=== PATIENT | female | born 1990 | race African-American/Black ===

== ENCOUNTER 2016-04-04 10:29 | Emergency (ER) | payer OTHER ==
[2016-04-04 12:16] LABS: Bilirubin Negative (Negative); Blood, Urine Trace (Negative); Clarity Clear (Clear); Glucose, Urine (Dipstick) Negative (Negative); Leukocyte Negative (Negative); Nitrite Negative (Negative); Protein, Urine (Dipstick) Negative (Neg-Trace); Specific Gravity, Urine 1.025 (1.005-1.030); Urobilinogen 0.2 mg/dL (0.2-1.0); pH, Urine 6.5 (5.0-9.0)
[2016-04-04 12:31] LABS: Bacteria/HPF None Seen HPF (None Seen); Renal Epithelial 0-3 HPF (0-3); Squamous Epithelial 0-3 HPF (0-3); Transitional Epithelial 0-3 HPF (0-3); WBC/HPF 0-3 HPF (0-3); Yeast-All Forms None Seen HPF (None Seen)
[2016-04-04 12:31] LABS: #Basophils 0.1 thou/uL (0.0-0.2); #Eosinphils 0.2 thou/uL (0.0-0.7); #Lymphocytes 2.4 thou/uL (1.20-3.40); #Monocytes 0.7 thou/uL (0.11-0.59); #Neutrophils 5.6 thou/uL (1.40-6.50); %Basophils 0.8 % (0.0-1.0); %Eosinophils 2.5 % (0.0-10.0); %Lymphocytes 26.6 % (21.0-51.0); %Monocytes 7.6 % (0.0-10.0); %Neutrophils 62.4 % (42.0-75.0); Mean Corpuscular HGB CONC 34.2 g/dL (32.0-36.0); Mean Corpuscular Hemoglobin 31.6 pg (27.0-31.0); Mean Corpuscular Volume 92.6 fl (81.0-99.0); Mean Platelet Volume 7.3 fL (7.4-10.4); Platelet Count 309 thou/uL (130-400); RBC Distribution Width 11.7 % (11.5-14.5)
[2016-04-04 12:39] LABS: Anion Gap 13 mmol/L (10-20); BUN (Urea Nitrogen) 6 mg/dL (7.0-18.7); Calc. Creatinine Clearance 0 mL/min (70-130); Calcium 9.2 mg/dL (7.8-10.44); Carbon Dioxide 25 mmol/L (22-29); Chloride 104 mmol/L (98-107); Estimated GFR-MDRD Greater than 90; Glucose 92 mg/dL (70-105); Sodium 138 mmol/L (136-145)
== END 2016-04-04 13:26 | disposition home or self-care (01) ==
LOC: MADERS 10:29
DX: O99.89 Other specified diseases and conditions complicating pregnancy, childbirth and the puerperium (principal); R33.9 Retention of urine, unspecified; O10.912 Unspecified pre-existing hypertension complicating pregnancy, second trimester
CPT/HCPCS: 36415; 80048; 81003; 81015; 85025; 99283

== ENCOUNTER 2016-05-29 17:00 | Outpatient (CLI) | payer OTHER ==
[2016-05-29 17:49] LABS: Amphetamine Detected (NotDetected); Barbiturates Screen Not Detected (NotDetected); Benzodiazepine Screen Not Detected (NotDetected); Cocaine Metabolite Screen Not Detected (NotDetected); Medtox Control Line Valid? VALID (VALID); Methadone Not Detected (NotDetected); Methamphetamine Not Detected (NotDetected); Opiate Screen Not Detected (NotDetected); Oxycodone Screen Not Detected (NotDetected); Phencyclidine (PCP) Not Detected (NotDetected); THC/Cannabinoid Screen Not Detected (NotDetected); Tricyclic Screen Not Detected (NotDetected)
== END 2016-05-29 17:01 | disposition home or self-care (01) ==
LOC: MADLABBHPM 17:00
PROVIDERS: ATTEND Family Medicine
DX: O09.892 Supervision of other high risk pregnancies, second trimester (principal)
CPT/HCPCS: 80306; 87086; 87491; 87591

== ENCOUNTER 2016-07-03 09:24 | Outpatient (CLI) | payer OTHER ==
[2016-07-03 17:00] LABS: Hemoglobin 11.9 g/dL (12.0-16.0); Red Blood Cell (RBC) Count 3.81 mill/uL (4.20-5.40); White Blood Cell (WBC) Count 9.4 thou/uL (4.8-10.8)
[2016-07-03 17:01] LABS: #Eosinphils 0.1 thou/uL (0.0-0.7); #Lymphocytes 2.1 thou/uL (1.20-3.40); #Monocytes 0.6 thou/uL (0.11-0.59); #Neutrophils 6.5 thou/uL (1.40-6.50); %Basophils 0.7 % (0.0-1.0); %Eosinophils 1.1 % (0.0-10.0); %Lymphocytes 22.3 % (21.0-51.0); %Monocytes 6.4 % (0.0-10.0); %Neutrophils 69.6 % (42.0-75.0); Mean Corpuscular HGB CONC 33.3 g/dL (32.0-36.0); Mean Corpuscular Hemoglobin 31.1 pg (27.0-31.0); Mean Corpuscular Volume 93.4 fL (81.0-99.0); Mean Platelet Volume 7.5 fL (7.4-10.4); Platelet Count 311 thou/uL (130-400); RBC Distribution Width 11.7 % (11.5-14.5)
[2016-07-03 17:02] LABS: #Basophils 0.1 thou/uL (0.0-0.2)
[2016-07-03 17:43] LABS: HBSAg Index 0.24 S/CO (0-0.99); HIV (1/2) Antibody/Antigen Non-Reactive (NonReactive); HIV 1/2 INDEX 0.15 S/CO (<1.00); Hep B Surf Ag Non-Reactive S/CO (NonReactive)
== END 2016-07-03 09:25 | disposition home or self-care (01) ==
LOC: MADLABBHPM 09:24
PROVIDERS: ATTEND Family Medicine
DX: O09.892 Supervision of other high risk pregnancies, second trimester (principal)
CPT/HCPCS: 36415; 80081; 82950; 85660

== ENCOUNTER 2016-07-23 06:03 | Emergency (ER) | payer OTHER | END 2016-07-23 06:43 | disposition home or self-care (01) | LOC: MADERS 06:03 | DX: J06.9 Acute upper respiratory infection, unspecified (principal); I10 Essential (primary) hypertension; Z79.899 Other long term (current) drug therapy | CPT/HCPCS: 99283 ==

== ENCOUNTER 2016-09-28 20:59 | Emergency (ER) | payer OTHER ==
[2016-09-28 21:26] LABS: Clarity Hazy (Clear); Leukocyte Trace (Negative); Nitrite Negative (Negative); Protein, Urine (Dipstick) Trace mg/dL (Neg-Trace); Specific Gravity, Urine 1.031 (1.002-1.036); pH, Urine 5.5 (5.0-9.0)
[2016-09-28 21:27] LABS: Bilirubin Negative (Negative); Blood, Urine Trace (Negative); Glucose, Urine (Dipstick) Negative (Negative); Urobilinogen 0.2 mg/dL (0.2-1.0)
[2016-09-28 21:29] LABS: Bacteria/HPF 1+ HPF (None Seen)
[2016-09-28] MEDS ORDERED: cefTRIAXone\\ROCEPHIN 1 GM VIAL ONE (21:40)
[2016-09-28] MEDS ORDERED: Lidocaine 1% 20 ML MDV ONE (21:40)
== END 2016-09-28 22:03 | disposition home or self-care (01) ==
LOC: MADERS 20:59
DX: N30.90 Cystitis, unspecified without hematuria (principal); I10 Essential (primary) hypertension; E78.00 Pure hypercholesterolemia, unspecified; Z79.899 Other long term (current) drug therapy
CPT/HCPCS: 81003; 81015; 87086; 96372; J0696; J2001

== ENCOUNTER 2016-12-27 06:17 | Emergency (ER) | payer MEDICAID ==
[2016-12-27] MEDS ORDERED: HYDROcodone/Acetaminophen 10/325 mg Tablet ONE (06:40)
--- NOTE | 2016-12-27 07:40 | RAD ---
RIGHT KNEE 4 VIEWS: Date: 12/27/16 HISTORY: Right knee injury. FINDINGS: There is mild tricompartmental osteophytosis and chondrocalcinosis. Fluid distends the suprapatellar bursa on the lateral view. No acute fracture or dislocation. IMPRESSION: 1. Joint fluid suggests the possibility of internal derangement. No acute osseous abnormalities are demonstrated. 2. Mild osteoarthritic changes. POS: [facility]
== END 2016-12-27 07:30 | disposition home or self-care (01) ==
LOC: MADERS 06:17
DX: S80.01XA Contusion of right knee, initial encounter (principal); Z79.899 Other long term (current) drug therapy; X50.9XXA Other and unspecified overexertion or strenuous movements or postures, initial encounter

== ENCOUNTER 2017-01-16 17:30 | Emergency (ER) | payer MEDICAID ==
[~2017-01-16 17:30] MED LIST: Lidocaine 1% 20 ML MDV ONE
[2017-01-16 17:58] LABS: Bilirubin Negative (Negative); Blood, Urine Negative (Negative); Clarity Clear (Clear); Glucose, Urine (Dipstick) Negative (Negative); Leukocyte Negative (Negative); Nitrite Negative (Negative); Protein, Urine (Dipstick) Negative (Neg-Trace)
[2017-01-16 18:00] LABS: Pregnancy Test - Urine (BHCG) Negative (Negative); Pregu Control Background? CLEAR/WHITE (CLR/WHITE); Pregu Control Bar Appear? YES (CONTROL BAR)
[2017-01-16] MEDS ORDERED: Azithromycin 250 MG TAB ONE (18:34)
[2017-01-16] MEDS ORDERED: cefTRIAXone\\ROCEPHIN 500 MG VIAL ONE (18:34)
[2017-01-16] MEDS ORDERED: cefTRIAXone\\ROCEPHIN 1 GM VIAL ONE (18:35)
[2017-01-16] MEDS ORDERED: Fluconazole 100 MG TAB ONE (18:39)
[2017-01-16] MEDS ORDERED: metroNIDAZOLE 250 MG TAB ONE (18:39)
[2017-01-20 00:52] LABS: Chlamydia by PCR Not Detected (NotDetected); GC by PCR Not Detected (NotDetected)
== END 2017-01-16 19:00 | disposition home or self-care (01) ==
LOC: MADERS 17:30
DX: N76.0 Acute vaginitis (principal); I10 Essential (primary) hypertension; Z79.899 Other long term (current) drug therapy
CPT/HCPCS: 81003; 81025; 87491; 87591; 96372; J0696; J2001

== ENCOUNTER 2017-01-21 16:10 | Emergency (ER) | payer MEDICAID ==
[2017-01-21 17:03] LABS: Bilirubin Negative (Negative); Blood, Urine Negative (Negative); Clarity Clear (Clear); Glucose, Urine (Dipstick) Negative (Negative); Leukocyte Negative (Negative); Nitrite Negative (Negative); Protein, Urine (Dipstick) Negative (Neg-Trace); Urobilinogen 0.2 mg/dL (0.2-1.0)
[2017-01-21 17:05] LABS: Pregnancy Test - Urine (BHCG) Negative (Negative); Pregu Control Background? CLEAR/WHITE (CLR/WHITE); Pregu Control Bar Appear? YES (CONTROL BAR)
== END 2017-01-21 18:30 | disposition home or self-care (01) ==
LOC: MADERS 16:10
DX: N76.0 Acute vaginitis (principal); I10 Essential (primary) hypertension
CPT/HCPCS: 81003; 81025; 99283

== ENCOUNTER 2017-02-28 11:06 | Emergency (ER) | payer MEDICAID, OTHER ==
[2017-02-28 12:04] LABS: Bilirubin Negative (Negative); Blood, Urine Large (Negative); Clarity Cloudy (Clear); Glucose, Urine (Dipstick) Negative (Negative); Leukocyte Trace (Negative); Nitrite Negative (Negative); Pregnancy Test - Urine (BHCG) Negative (Negative); Pregu Control Background? CLEAR/WHITE (CLR/WHITE); Pregu Control Bar Appear? YES (CONTROL BAR); Protein, Urine (Dipstick) 30 mg/dL (Neg-Trace); Specific Gravity 1.025 (1.002-1.036); Specific Gravity, Urine 1.025 (1.005-1.030); Urobilinogen 0.2 mg/dL (0.2-1.0); pH, Urine 5.5 (5.0-9.0)
[2017-02-28 12:05] LABS: RBC/HPF GREATER THAN 50-TNTC HPF (0-3)
[2017-02-28 12:06] LABS: Bacteria/HPF Rare-Few HPF (None Seen)
[2017-02-28] MEDS ORDERED: Ondansetron ODT 4 MG TAB ONE (12:13)
[2017-02-28] MEDS ORDERED: Ketorolac Tromethamine 60 MG/2 ML VIAL ONE (12:13)
== END 2017-02-28 12:43 | disposition home or self-care (01) ==
LOC: MADERS 11:06
DX: N94.6 Dysmenorrhea, unspecified (principal); I10 Essential (primary) hypertension
CPT/HCPCS: 81003; 81015; 81025; 96372; J1885; Q0162

== ENCOUNTER 2017-08-21 14:36 | Emergency (ER) | payer OTHER ==
[2017-08-21 15:02] LABS: Bilirubin Negative (Negative); Blood, Urine Trace (Negative); Clarity Clear (Clear); Glucose, Urine (Dipstick) Negative (Negative); Leukocyte Negative (Negative); Nitrite Negative (Negative); Protein, Urine (Dipstick) Negative (Neg-Trace); Specific Gravity, Urine 1.025 (1.005-1.030); Urobilinogen 0.2 mg/dL (0.2-1.0)
[2017-08-21 15:04] LABS: Pregnancy Test - Urine (BHCG) Negative (Negative); Pregu Control Background? CLEAR/WHITE (CLR/WHITE); Pregu Control Bar Appear? YES (CONTROL BAR); Specific Gravity 1.025 (1.002-1.036)
[2017-08-21 15:13] LABS: Bacteria/HPF Rare-Few HPF (None Seen); Hyaline Casts/LPF NONE SEEN LPF (0-3 Hyaline); RBC/HPF None Seen HPF (0-3); WBC/HPF 0-3 HPF (0-3)
== END 2017-08-21 15:30 | disposition home or self-care (01) ==
LOC: MADERS 14:36
DX: N30.90 Cystitis, unspecified without hematuria (principal); I10 Essential (primary) hypertension; Z79.899 Other long term (current) drug therapy
CPT/HCPCS: 81003; 81015; 81025; 99283

== ENCOUNTER 2017-10-01 07:54 | Outpatient (CLI) | payer OTHER ==
[2017-10-01 08:25] LABS: Hemoglobin 13.2 g/dL (12.0-16.0); Manual Diff?? NO; Mean Corpuscular HGB CONC 32.3 g/dL (32.0-36.0); Mean Corpuscular Hemoglobin 28.4 pg (27.0-31.0); Mean Corpuscular Volume 88.1 fL (78.0-98.0); Mean Platelet Volume 6.1 fL (7.4-10.4); Platelet Count 394 thou/uL (130-400); RBC Distribution Width 11.5 % (11.5-14.5); Red Blood Cell (RBC) Count 4.65 mill/uL (4.20-5.40); White Blood Cell (WBC) Count 7.4 thou/uL (4.8-10.8)
[2017-10-01 08:26] LABS: #Basophils 0.1 thou/uL (0.0-0.2); #Eosinphils 0.2 thou/uL (0.0-0.7); #Monocytes 0.6 thou/uL (0.11-0.59); #Neutrophils 3.7 thou/uL (1.40-6.50); %Basophils 1.5 % (0.0-1.0); %Eosinophils 2.9 % (0.0-10.0); %Lymphocytes 36.8 % (21.0-51.0); %Monocytes 8.7 % (0.0-10.0); %Neutrophils 50.1 % (42.0-75.0); MDiff Complete? YES
[2017-10-01 08:43] LABS: ALT (SGPT) 23 U/L (8-55); AST (SGOT) 22 U/L (5-34); Albumin 4.2 g/dL (3.5-5.0); Alkaline Phosphatase 82 U/L (40-150); Anion Gap 15 mmol/L (10-20); BUN (Urea Nitrogen) 10 mg/dL (7.0-18.7); Bilirubin, Total 0.3 mg/dL (0.2-1.2); Calc. Creatinine Clearance 0 mL/min (70-130); Calcium 9.2 mg/dL (7.8-10.44); Carbon Dioxide 24 mmol/L (22-29); Cardiac Risk 3.6 (Less than 4.5); Chloride 107 mmol/L (98-107); Cholesterol 145 mg/dl (< 200 Desired); Estimated GFR-MDRD Greater than 90; Globulin 3.5 g/dL (2.4-3.5); Glucose 97 mg/dL (70-105); HDL Cholesterol 40 mg/dL (>60 Neg Risk); LDL Cholesterol, Calculated 95 mg/dL; Potassium 4.1 mmol/L (3.5-5.1); Protein, Total 7.7 g/dL (6.0-8.3); Sodium 142 mmol/L (136-145); Triglycerides 48 mg/dL (Less than 150)
[2017-10-01 09:03] LABS: Thyroid Stimulating Hormone 2.2195 uIU/mL (0.35-4.94)
[2017-10-01 18:07] LABS: Folate (Folic Acid) 12.8 ng/mL (7.0-31.4)
[2017-10-01 18:20] LABS: Hemoglobin A1c 4.7 % (4.0-6.0)
[2017-10-01 19:03] LABS: Iron 59 ug/dL (50-170)
[2017-10-01 19:04] LABS: Ferritin 71.38 ng/mL (10-291); Free T4 (Free Thyroxine) 0.99 ng/dL (0.70-1.48); Vitamin D, 25 Hydroxy 25.8 ng/ml (> 30.0)
== END 2017-10-01 07:55 | disposition home or self-care (01) ==
LOC: MADLABBHPM 07:54
PROVIDERS: ATTEND Family Medicine
DX: E66.01 Morbid (severe) obesity due to excess calories (principal)
CPT/HCPCS: 36415; 80053; 80061; 82306; 82607; 82728; 82746; 83036; 83540; 84425; 84439; 84443; 84481; 85025; 86677

== ENCOUNTER 2018-02-26 20:30 | Emergency (ER) | payer OTHER ==
[2018-02-26] MEDS ORDERED: Ketorolac Tromethamine 60 MG/2 ML VIAL ONE (21:00)
== END 2018-02-26 21:23 | disposition home or self-care (01) ==
LOC: MADERS 20:30
DX: S29.012A Strain of muscle and tendon of back wall of thorax, initial encounter (principal); Z79.899 Other long term (current) drug therapy; X58.XXXA Exposure to other specified factors, initial encounter
CPT/HCPCS: 96372; J1885

== ENCOUNTER 2018-06-09 14:58 | Emergency (ER) | payer OTHER ==
[2018-06-09 16:32] LABS: Bilirubin Negative (Negative); Blood, Urine Trace (Negative); Glucose, Urine (Dipstick) Negative (Negative); Leukocyte Negative (Negative); Nitrite Negative (Negative); Protein, Urine (Dipstick) Negative (Neg-Trace); pH, Urine 5.5 (5.0-9.0)
[2018-06-09 16:34] LABS: Bacteria/HPF 1+ HPF (None Seen); Clarity Hazy (Clear); RBC/HPF 0-3 HPF (0-3); Specific Gravity, Urine 1.029 (1.002-1.036); WBC/HPF 0-3 HPF (0-3)
== END 2018-06-09 17:00 | disposition home or self-care (01) ==
LOC: MADERS 14:58
DX: R30.0 Dysuria (principal); I10 Essential (primary) hypertension; Z79.899 Other long term (current) drug therapy
CPT/HCPCS: 81003; 81015; 87086; 99283

== ENCOUNTER 2018-07-21 10:22 | Emergency (ER) | payer OTHER ==
[2018-07-21] MEDS ORDERED: Ondansetron ODT 4 MG TAB ONE (10:51)
== END 2018-07-21 11:32 | disposition home or self-care (01) ==
LOC: MADERS 10:22
DX: K52.9 Noninfective gastroenteritis and colitis, unspecified (principal); I10 Essential (primary) hypertension; Z79.899 Other long term (current) drug therapy
CPT/HCPCS: 96372; J0500; Q0162

== ENCOUNTER 2018-11-11 07:36 | Emergency (ER) | payer OTHER ==
[2018-11-11] MEDS ORDERED: Lidocaine 2% w/Epinephrine 1:200K 20 ML VIAL ONE (08:32)
[2018-11-11] MEDS ORDERED: Lidocaine 1% w/Epinephrine 1:100K 20 ML VIAL ONE (08:33)
== END 2018-11-11 09:31 | disposition home or self-care (01) ==
LOC: MADERS 07:36
DX: S60.351A Superficial foreign body of right thumb, initial encounter (principal); I10 Essential (primary) hypertension; Z79.899 Other long term (current) drug therapy; W25.XXXA Contact with sharp glass, initial encounter
CPT/HCPCS: 64450; J2001

== ENCOUNTER 2018-12-09 14:37 | Emergency (ER) | payer OTHER ==
[2018-12-09 15:06] LABS: Bilirubin Negative (Negative); Blood, Urine Small (Negative); Clarity Clear (Clear); Glucose, Urine (Dipstick) Negative (Negative); Leukocyte Negative (Negative); Nitrite Negative (Negative); Protein, Urine (Dipstick) Negative (Neg-Trace); Urobilinogen 0.2 mg/dL (Less than 2)
[2018-12-09 15:09] LABS: Pregnancy Test - Urine (BHCG) Negative (Negative); Pregu Control Background? CLEAR/WHITE (CLR/WHITE); Pregu Control Bar Appear? YES (CONTROL BAR)
[2018-12-09 15:12] LABS: Bacteria/HPF Rare-Few HPF (None Seen); WBC/HPF 0-3 HPF (0-3)
== END 2018-12-09 15:46 | disposition home or self-care (01) ==
LOC: MADERS 14:37
DX: R30.0 Dysuria (principal); I10 Essential (primary) hypertension; Z79.899 Other long term (current) drug therapy
CPT/HCPCS: 81003; 81015; 81025; 99283

== ENCOUNTER → 2019-01-18 | Emergency (ER) | payer OTHER ==
[~2019-01-18] MED LIST changes: +Bicillin LA 1.2 MILLION UNITS/2 ML SYRINGE ONE; -Lidocaine 1% 20 ML MDV ONE
[2019-01-18 20:43] LABS: Pregnancy Test - Urine (BHCG) Negative (Negative); Pregu Control Background? CLEAR/WHITE (CLR/WHITE); Pregu Control Bar Appear? YES (CONTROL BAR); Specific Gravity 1.025 (1.002-1.036)
[2019-01-18 20:44] LABS: Bilirubin Large (Negative); Blood, Urine Small (Negative); Clarity Clear (Clear); Glucose, Urine (Dipstick) Negative (Negative); Leukocyte Negative (Negative); Nitrite Positive (Negative); Protein, Urine (Dipstick) 30 mg/dL (Neg-Trace)
[2019-01-18 20:53] LABS: Mucous/LPF 4+ LPF (<2+); Squamous Epithelial Greater than 50 HPF (0-3)
[2019-01-18 20:54] LABS: Calcium Oxalate Crystals 3+ HPF (None Seen)
[2019-01-18 20:57] LABS: Yeast-Budding 1+ HPF (None Seen); Yeast-Hyphae 1+ HPF (None Seen)
[2019-01-18 20:58] LABS: Bacteria/HPF 2+ HPF (None Seen)
== END ==
LOC: MADERS 19:29
DX: J02.9 Acute pharyngitis, unspecified (principal); N39.0 Urinary tract infection, site not specified; I10 Essential (primary) hypertension; Z79.899 Other long term (current) drug therapy
CPT/HCPCS: 81003; 81015; 81025; 87086; 96372; 99283; J0561

== ENCOUNTER 2019-02-26 22:04 | Emergency (ER) | payer MEDICAID, OTHER | END 2019-02-26 22:35 | disposition home or self-care (01) | LOC: MADERS 22:04 | DX: L02.424 Furuncle of left upper limb (principal); I10 Essential (primary) hypertension | CPT/HCPCS: 99282 ==

== ENCOUNTER 2019-09-09 12:17 | Emergency (ER) | payer OTHER ==
--- NOTE | 2019-09-09 13:00 | RAD ---
EXAM: Chest 2 views: HISTORY: Foreign body COMPARISON: 05/15/2018 FINDINGS: There is an enlarged but stable cardiomediastinal silhouette. No radiopaque foreign body is seen. T here is no evidence of consolidation, mass, or pleural effusion. The bones are unremarkable. IMPRESSION: Cardiomegaly without evidence of acute cardiopulmonary disease
--- NOTE | 2019-09-09 13:06 | RAD ---
EXAM: Single view of the abdomen HISTORY: Possible swallowed tongue ring COMPARISON: None FINDINGS: Single view of the abdomen shows a nonspecific, nonobstructive bowel gas pattern. There may be a small round radiopaque foreign body in the lower abdomen. No suspicious calcifications are seen. The bones are unremarkable. IMPRESSION: Possible radiopaque foreign body in the lower abdomen
== END 2019-09-09 13:14 | disposition home or self-care (01) ==
LOC: MADERS 12:17
DX: T18.9XXA Foreign body of alimentary tract, part unspecified, initial encounter (principal); I10 Essential (primary) hypertension; Z79.899 Other long term (current) drug therapy
CPT/HCPCS: 71046; 74018

== ENCOUNTER 2019-11-06 00:54 | Emergency (ER) | payer OTHER ==
[2019-11-06] MEDS ORDERED: predniSONE 20 MG TAB ONE (01:26)
[2019-11-06] MEDS ORDERED: Sulfameth/Trimethoprim DS 800-160mg TAB ONE (01:26)
== END 2019-11-06 01:35 | disposition home or self-care (01) ==
LOC: MADERS 00:54
DX: H10.503 Unspecified blepharoconjunctivitis, bilateral (principal); I10 Essential (primary) hypertension; E66.9 Obesity, unspecified
CPT/HCPCS: 99283; J7512

== ENCOUNTER 2020-01-03 07:47 | Emergency (ER) | payer OTHER ==
[2020-01-03] MEDS ORDERED: Meclizine HCl 25 MG TAB ONE (08:55)
== END 2020-01-03 08:55 | disposition home or self-care (01) ==
LOC: MADERS 07:47
DX: H81.399 Other peripheral vertigo, unspecified ear (principal); I10 Essential (primary) hypertension; E66.9 Obesity, unspecified
CPT/HCPCS: 36416; 93005

== ENCOUNTER 2020-02-28 17:01 | Emergency (ER) | payer OTHER | END 2020-02-28 17:46 | disposition home or self-care (01) | LOC: MADERS 17:01 | DX: L03.113 Cellulitis of right upper limb (principal); I10 Essential (primary) hypertension; E66.9 Obesity, unspecified; Z79.899 Other long term (current) drug therapy | CPT/HCPCS: 99283 ==

== ENCOUNTER 2021-11-25 09:09 | Emergency (ER) | payer OTHER, SELFPAY ==
[2021-11-25 10:00] LABS: #Basophils 0.1 thou/uL (0.0-0.2); #Eosinphils 0.1 thou/uL (0.0-0.7); #Lymphocytes 2.8 thou/uL (1.20-3.40); #Monocytes 0.5 thou/uL (0.11-0.59); #Neutrophils 2.7 thou/uL (1.40-6.50); %Basophils 1.9 % (0.0-1.0); %Eosinophils 2.3 % (0.0-10.0); %Monocytes 7.4 % (0.0-10.0); %Neutrophils 43.5 % (42.0-75.0); Hemoglobin 12.9 g/dL (12.0-16.0); Mean Corpuscular HGB CONC 31.2 g/dL (32.0-36.0); Mean Corpuscular Hemoglobin 28.9 pg (27.0-31.0); Mean Corpuscular Volume 92.5 fL (78.0-98.0); Mean Platelet Volume 7.8 fL (7.4-10.4); Platelet Count 384 thou/uL (130-400); Red Blood Cell (RBC) Count 4.48 mill/uL (4.20-5.40); White Blood Cell (WBC) Count 6.2 thou/uL (4.8-10.8)
[2021-11-25 10:19] LABS: ALT (SGPT) Less than 7 U/L (8-55); AST (SGOT) 14 U/L (5-34); Albumin 4.1 g/dL (3.5-5.0); Alkaline Phosphatase 71 U/L (40-110); Anion Gap 15 mmol/L (10-20); BUN (Urea Nitrogen) 9 mg/dL (7.0-18.7); Bilirubin, Total 0.5 mg/dL (0.2-1.2); Calc. Creatinine Clearance 0 mL/min (70-130); Calcium 9.1 mg/dL (7.8-10.44); Carbon Dioxide 24 mmol/L (22-29); Chloride 108 mmol/L (98-107); Estimated GFR 101; Globulin 2.9 g/dL (2.4-3.5); Glucose 79 mg/dL (70-105); Potassium 3.8 mmol/L (3.5-5.1); Sodium 143 mmol/L (136-145)
== END 2021-11-25 12:53 | disposition home or self-care (01) ==
LOC: MADERS 09:09
DX: R07.9 Chest pain, unspecified (principal); R06.02 Shortness of breath; I11.0 Hypertensive heart disease with heart failure; I50.9 Heart failure, unspecified; E78.5 Hyperlipidemia, unspecified; E66.9 Obesity, unspecified; I42.9 Cardiomyopathy, unspecified; Z79.899 Other long term (current) drug therapy
CPT/HCPCS: 71045; 80053; 83880; 84484; 85025; 93005

== ENCOUNTER 2021-11-30 21:12 | Emergency (ER) | payer OTHER, SELFPAY ==
[2021-11-30 22:42] LABS: Band 1 % (5-11); Eosinophils 3 % (0-10); Hemoglobin 12.1 g/dL (12.0-16.0); Lymphocytes 55 % (21-51); MDiff Complete? YES; Mean Corpuscular HGB CONC 32.1 g/dL (32.0-36.0); Mean Corpuscular Hemoglobin 29.4 pg (27.0-31.0); Mean Corpuscular Volume 91.6 fL (78.0-98.0); Mean Platelet Volume 7.4 fL (7.4-10.4); Monocytes 11 % (0-10); Neutrophil 30 % (42-75); Platelet Count 345 thou/uL (130-400); RBC Distribution Width 11.4 % (11.5-14.5); Red Blood Cell (RBC) Count 4.11 mill/uL (4.20-5.40); White Blood Cell (WBC) Count 7.9 thou/uL (4.8-10.8)
[2021-11-30 22:45] LABS: Bilirubin Negative (Negative); Blood, Urine Negative (Negative); Clarity Clear (Clear); Glucose, Urine (Dipstick) Negative (Negative); Ketone, Urine Negative (Negative); Leukocyte Negative (Negative); Nitrite Negative (Negative); Protein, Urine (Dipstick) Negative (Neg-Trace); Specific Gravity, Urine 1.015 (1.005-1.030); Urobilinogen 0.2 mg/dL (Less than 2)
[2021-11-30 22:48] LABS: BHCG - Serum Negative (NEGATIVE); Pregs Control Background? CLEAR/WHITE (CLR/WHITE); Pregs Control Bar Appear? YES (CONTROL BAR)
[2021-11-30 22:53] LABS: ALT (SGPT) 9 U/L (8-55); AST (SGOT) 13 U/L (5-34); Albumin 3.8 g/dL (3.5-5.0); Alkaline Phosphatase 60 U/L (40-110); Anion Gap 16 mmol/L (10-20); BUN (Urea Nitrogen) 8 mg/dL (7.0-18.7); Bilirubin, Total 0.3 mg/dL (0.2-1.2); Calc. Creatinine Clearance 0 mL/min (70-130); Calcium 8.8 mg/dL (7.8-10.44); Carbon Dioxide 23 mmol/L (22-29); Chloride 105 mmol/L (98-107); Estimated GFR 109; Globulin 3.2 g/dL (2.4-3.5); Glucose 92 mg/dL (70-105); Potassium 3.7 mmol/L (3.5-5.1); Sodium 140 mmol/L (136-145)
== END 2021-12-01 03:43 | disposition home or self-care (01) ==
LOC: MADERS 21:12
DX: I51.7 Cardiomegaly (principal); Z87.891 Personal history of nicotine dependence
CPT/HCPCS: 36415; 71045; 80053; 81003; 83880; 84484; 84703; 85025; 93005

== ENCOUNTER 2021-12-30 14:09 | Emergency (ER) | payer OTHER ==
[2021-12-30] MEDS ORDERED: Tetracaine 0.5% PF 4 ML BOT ONE (15:29)
[2021-12-30] MEDS ORDERED: Fluorescein Opthalmic Strip ONE (15:31)
== END 2021-12-30 15:50 | disposition home or self-care (01) ==
LOC: MADERS 14:09
DX: S05.8X1A Other injuries of right eye and orbit, initial encounter (principal); S09.90XA Unspecified injury of head, initial encounter; I10 Essential (primary) hypertension; E66.9 Obesity, unspecified; Y04.8XXA Assault by other bodily force, initial encounter; Z87.891 Personal history of nicotine dependence
CPT/HCPCS: 70450; 70486

== ENCOUNTER 2022-01-12 09:11 | Emergency (ER) | payer OTHER ==
[2022-01-12] MEDS ORDERED: Ketorolac Tromethamine 60 MG/2 ML VIAL ONE (09:51)
[2022-01-12 10:06] LABS: Pregnancy Test - Urine (BHCG) Negative (Negative); Pregu Control Background? CLEAR/WHITE (CLR/WHITE); Pregu Control Bar Appear? YES (CONTROL BAR)
[2022-01-12 10:07] LABS: Bilirubin Negative (Negative); Blood, Urine Negative (Negative); Clarity Hazy (Clear); Glucose, Urine (Dipstick) Negative (Negative); Ketone, Urine Negative (Negative); Leukocyte Negative (Negative); Nitrite Negative (Negative); Protein, Urine (Dipstick) Negative (Neg-Trace)
== END 2022-01-12 10:45 | disposition home or self-care (01) ==
LOC: MADERS 09:11
DX: N89.8 Other specified noninflammatory disorders of vagina (principal); I10 Essential (primary) hypertension; E66.9 Obesity, unspecified; Z87.891 Personal history of nicotine dependence; Z79.899 Other long term (current) drug therapy
CPT/HCPCS: 81003; 81025; 96372; 99284; J1885

== ENCOUNTER 2022-01-12 11:18 | Outpatient (CLI) | payer OTHER ==
[2022-01-12 20:25] LABS: Chlamydia by PCR Not Detected (NotDetected); GC by PCR Not Detected (NotDetected)
== END 2022-01-12 11:19 | disposition home or self-care (01) ==
LOC: MADLABBHPM 11:18
PROVIDERS: ATTEND Family Medicine
DX: Z11.3 Encounter for screening for infections with a predominantly sexual mode of transmission (principal); N89.8 Other specified noninflammatory disorders of vagina
CPT/HCPCS: 87480; 87491; 87510; 87591; 87660; 87661

== ENCOUNTER 2022-02-01 09:20 | Emergency (ER) | payer OTHER, SELFPAY ==
[2022-02-01 09:46] LABS: Bilirubin Small (Negative); Blood, Urine Negative (Negative); Glucose, Urine (Dipstick) Negative (Negative); Ketone, Urine Trace mg/dL (Negative); Leukocyte Negative (Negative); Nitrite Negative (Negative); Protein, Urine (Dipstick) Trace mg/dL (Neg-Trace); Urobilinogen > or = 8.0 mg/dL (Less than 2)
[2022-02-01 09:47] LABS: Clarity Hazy (Clear); Pregnancy Test - Urine (BHCG) Negative (Negative); Pregu Control Background? CLEAR/WHITE (CLR/WHITE); Pregu Control Bar Appear? YES (CONTROL BAR); Specific Gravity 1.024 (1.002-1.036); Specific Gravity, Urine 1.024 (1.002-1.036)
[2022-02-01] MEDS ORDERED: cefTRIAXone\\ROCEPHIN 500 MG VIAL ONE (10:11)
[2022-02-01] MEDS ORDERED: Doxycycline 100 MG CAP ONE (10:11)
[2022-02-01] MEDS ORDERED: Lidocaine 1% PF 5 ML VIAL ONE (10:14)
[2022-02-03 13:15] LABS: Chlamydia by PCR *Indeterminate (NotDetected); GC by PCR *Indeterminate (NotDetected)
== END 2022-02-01 10:35 | disposition home or self-care (01) ==
LOC: MADERS 09:20
DX: E86.0 Dehydration (principal); R30.0 Dysuria; Z20.2 Contact with and (suspected) exposure to infections with a predominantly sexual mode of transmission; I10 Essential (primary) hypertension; E66.9 Obesity, unspecified; Z87.891 Personal history of nicotine dependence; Z79.899 Other long term (current) drug therapy
CPT/HCPCS: 81003; 81025; 87480; 87491; 87510; 87591; 87660; 96372; 99284; J0696

== ENCOUNTER 2022-02-12 10:55 | Emergency (ER) | payer OTHER ==
[2022-02-12 11:46] LABS: Bilirubin Negative (Negative); Blood, Urine Negative (Negative); Clarity Clear (Clear); Glucose, Urine (Dipstick) Negative (Negative); Ketone, Urine Negative (Negative); Leukocyte Negative (Negative); Nitrite Negative (Negative); Protein, Urine (Dipstick) Negative (Neg-Trace); Specific Gravity, Urine 1.025 (1.005-1.030); pH, Urine 6.5 (5.0-9.0)
[2022-02-12 11:47] LABS: Pregnancy Test - Urine (BHCG) Negative (Negative)
[2022-02-12 11:48] LABS: Pregu Control Background? CLEAR/WHITE (CLR/WHITE); Pregu Control Bar Appear? YES (CONTROL BAR); Specific Gravity 1.025 (1.002-1.036)
[2022-02-12 22:44] LABS: Chlamydia by PCR DETECTED (NotDetected); GC by PCR Not Detected (NotDetected)
== END 2022-02-12 11:48 | disposition home or self-care (01) ==
LOC: MADERS 10:55
DX: N89.8 Other specified noninflammatory disorders of vagina (principal); R10.2 Pelvic and perineal pain; Z87.891 Personal history of nicotine dependence
CPT/HCPCS: 81003; 81025; 87480; 87491; 87510; 87591; 87660; 99284

== ENCOUNTER 2022-05-27 11:02 | Outpatient (CLI) | payer OTHER | END 2022-05-27 11:03 | disposition home or self-care (01) | LOC: MADRAD 11:02 | PROVIDERS: ATTEND Family Medicine | DX: M25.561 Pain in right knee (principal); M17.11 Unilateral primary osteoarthritis, right knee ==

== ENCOUNTER 2022-06-13 11:58 | Emergency (ER) | payer OTHER ==
[2022-06-13] MEDS ORDERED: Aspirin Chewable 81 MG TAB ONE (12:59)
[2022-06-13 13:19] LABS: #Basophils 0.1 thou/uL (0.0-0.2); #Eosinphils 0.2 thou/uL (0.0-0.7); #Lymphocytes 3.7 thou/uL (1.20-3.40); #Monocytes 0.8 thou/uL (0.11-0.59); #Neutrophils 4.2 thou/uL (1.40-6.50); %Eosinophils 2.4 % (0.0-10.0); %Lymphocytes 40.8 % (21.0-51.0); %Monocytes 9.2 % (0.0-10.0); %Neutrophils 46.6 % (42.0-75.0); Hemoglobin 10.9 g/dL (12.0-16.0); Mean Corpuscular HGB CONC 30.4 g/dL (32.0-36.0); Mean Corpuscular Hemoglobin 27.4 pg (27.0-31.0); Mean Corpuscular Volume 90.1 fl (78.0-98.0); Mean Platelet Volume 7.9 fL (7.4-10.4); Platelet Count 363 10x3/uL (130-400); RBC Distribution Width 13.8 % (11.5-14.5); Red Blood Cell (RBC) Count 3.98 mill/uL (4.20-5.40); White Blood Cell (WBC) Count 8.9 10x3/uL (4.8-10.8)
[2022-06-13 13:37] LABS: ALT (SGPT) 8 U/L (8-55); AST (SGOT) 13 U/L (5-34); Albumin 3.6 g/dL (3.5-5.0); Alkaline Phosphatase 66 U/L (40-110); Anion Gap 16 mmol/L (10-20); BUN (Urea Nitrogen) 9 mg/dL (7.0-18.7); Bilirubin, Total 0.3 mg/dL (0.2-1.2); Calc. Creatinine Clearance 0 mL/min (70-130); Calcium 8.7 mg/dL (7.8-10.44); Carbon Dioxide 25 mmol/L (22-29); Chloride 105 mmol/L (98-107); Estimated GFR 113; Globulin 3.2 g/dL (2.4-3.5); Glucose 82 mg/dL (70-105); Potassium 4.3 mmol/L (3.5-5.1); Protein, Total 6.8 g/dL (6.0-8.3); Sodium 142 mmol/L (136-145)
[2022-06-13 15:07] LABS: Troponin I 0.015 ng/mL (< 0.028)
== END 2022-06-13 15:34 | disposition home or self-care (01) ==
LOC: MADERS 11:58
DX: R07.9 Chest pain, unspecified (principal); E66.9 Obesity, unspecified; F17.210 Nicotine dependence, cigarettes, uncomplicated; I11.0 Hypertensive heart disease with heart failure; I50.9 Heart failure, unspecified
CPT/HCPCS: 36415; 71045; 80053; 84484; 85025; 85379

== ENCOUNTER 2022-06-23 08:32 | Emergency (ER) | payer OTHER ==
[2022-06-23 09:29] LABS: Wet Prep Trichomonas Trichomonas Absent (None Seen)
[2022-06-23 09:30] LABS: Wet Prep Clue Cells Clue Cells Absent (None Seen)
[2022-06-23 09:31] LABS: Wet Prep Pathologist Review Spermatozoa Absent (None Seen); Wet Prep Spermatozoa 2nd Revie Agree with result (None Seen)
[2022-06-23 09:35] LABS: Bilirubin Negative (Negative); Blood, Urine Negative (Negative); Glucose, Urine (Dipstick) Negative (Negative); Ketone, Urine Trace mg/dL (Negative); Leukocyte Negative (Negative); Nitrite Negative (Negative); Protein, Urine (Dipstick) Negative (Neg-Trace); Urobilinogen > or = 8.0 mg/dL (Less than 2)
[2022-06-23 09:38] LABS: Clarity Hazy (Clear); Specific Gravity, Urine 1.025 (1.002-1.036)
[2022-06-23 09:39] LABS: Pregnancy Test - Urine (BHCG) Negative (Negative); Pregu Control Background? CLEAR/WHITE (CLR/WHITE); Pregu Control Bar Appear? YES (CONTROL BAR); Specific Gravity 1.025 (1.002-1.036)
[2022-06-23] MEDS ORDERED: Azithromycin 250 MG TAB ONE (10:19)
[2022-06-23] MEDS ORDERED: cefTRIAXone (ROCEPHIN) 1 GM VIAL ONE (10:19)
[2022-06-24 12:24] LABS: Chlam.trachomatis by PCR,Urine Not Detected (NotDetected); GC N.gonorrhoeae PCR,UrineVOID Not Detected (NotDetected)
== END 2022-06-23 10:50 | disposition home or self-care (01) ==
LOC: MADERS 08:32
DX: B37.31 Acute candidiasis of vulva and vagina (principal); Z20.2 Contact with and (suspected) exposure to infections with a predominantly sexual mode of transmission; I11.0 Hypertensive heart disease with heart failure; I50.9 Heart failure, unspecified; E66.9 Obesity, unspecified; Z87.891 Personal history of nicotine dependence; Z79.899 Other long term (current) drug therapy
CPT/HCPCS: 81003; 81025; 87210; 87480; 87491; 87510; 87591; 87660; 96372; 99283; J0696

== ENCOUNTER 2022-06-29 08:51 | Emergency (ER) | payer OTHER ==
[2022-06-29] MEDS ORDERED: Ketorolac Tromethamine 30 MG/ML VIAL ONE (10:25)
[2022-06-29] MEDS ORDERED: Acetaminophen 500 MG TAB ONE (10:25)
[2022-06-29] MEDS ORDERED: Ondansetron ODT 4 MG TAB ONE (10:25)
[2022-06-29] MEDS ORDERED: metroNIDAZOLE 500 MG/100 ML BAG ONE (10:25)
[2022-06-29] MEDS ORDERED: metroNIDAZOLE 250 MG TAB ONE (10:26)
[2022-06-29 11:08] LABS: Bilirubin Negative (Negative); Blood, Urine Negative (Negative); Clarity Clear (Clear); Glucose, Urine (Dipstick) Negative (Negative); Ketone, Urine Negative (Negative); Leukocyte Negative (Negative); Nitrite Negative (Negative); Protein, Urine (Dipstick) Negative (Neg-Trace); Specific Gravity, Urine 1.025 (1.005-1.030); Urobilinogen 0.2 mg/dL (Less than 2)
[2022-06-29 11:10] LABS: Pregnancy Test - Urine (BHCG) Negative (Negative); Pregu Control Background? CLEAR/WHITE (CLR/WHITE); Pregu Control Bar Appear? YES (CONTROL BAR); Specific Gravity 1.025 (1.002-1.036)
== END 2022-06-29 13:14 | disposition home or self-care (01) ==
LOC: MADERS 08:51
DX: N76.0 Acute vaginitis (principal); I10 Essential (primary) hypertension; E66.9 Obesity, unspecified; Z87.891 Personal history of nicotine dependence
CPT/HCPCS: 81003; 81025; 87086; 96372; 99284; J1885; Q0162

== ENCOUNTER 2022-10-04 09:15 | Emergency (ER) | payer OTHER ==
[2022-10-04 09:47] LABS: Bilirubin Negative (Negative); Blood, Urine Trace (Negative); Clarity Clear (Clear); Glucose, Urine (Dipstick) Negative (Negative); Ketone, Urine Negative (Negative); Leukocyte Negative (Negative); Nitrite Negative (Negative); Protein, Urine (Dipstick) Negative (Neg-Trace); pH, Urine 5.5 (5.0-9.0)
[2022-10-04 09:50] LABS: Pregnancy Test - Urine (BHCG) Negative (Negative); Pregu Control Background? CLEAR/WHITE (CLR/WHITE); Pregu Control Bar Appear? YES (CONTROL BAR)
[2022-10-04 09:55] LABS: Bacteria/HPF Rare-Few HPF (None Seen); CAUTI Indications for Culture Dysuria,urgency,freq; Mucous/LPF 1+ LPF (<2+); RBC/HPF 0-3 HPF (0-3); Squamous Epithelial 0-3 HPF (0-3); Urine Culture Reflex No No; WBC/HPF 0-3 HPF (0-3)
== END 2022-10-04 10:10 | disposition home or self-care (01) ==
LOC: MADERS 09:15
DX: R30.0 Dysuria (principal); I11.0 Hypertensive heart disease with heart failure; I50.9 Heart failure, unspecified; E66.9 Obesity, unspecified; Z87.891 Personal history of nicotine dependence; Z79.899 Other long term (current) drug therapy
CPT/HCPCS: 81001; 81025; 87086; 99283

== ENCOUNTER 2022-10-18 23:32 | Emergency (ER) | payer OTHER ==
[2022-10-19 00:11] LABS: #Basophils 0.2 thou/uL (0.0-0.2); #Eosinphils 0.3 thou/uL (0.0-0.7); #Lymphocytes 4.2 thou/uL (1.20-3.40); #Monocytes 0.9 thou/uL (0.11-0.59); #Neutrophils 5.4 thou/uL (1.40-6.50); %Basophils 1.7 % (0.0-1.0); %Eosinophils 2.7 % (0.0-10.0); %Lymphocytes 38.7 % (21.0-51.0); %Monocytes 8.2 % (0.0-10.0); %Neutrophils 48.7 % (42.0-75.0); Hematocrit 34.2 % (36.0-47.0); Hemoglobin 10.8 g/dL (12.0-16.0); Mean Corpuscular HGB CONC 31.7 g/dL (32.0-36.0); Mean Corpuscular Hemoglobin 27.1 pg (27.0-31.0); Mean Corpuscular Volume 85.5 fl (78.0-98.0); Platelet Count 401 10x3/uL (130-400); RBC Distribution Width 14.9 % (11.5-14.5); Red Blood Cell (RBC) Count 3.99 mill/uL (4.20-5.40)
[2022-10-19 00:36] LABS: ALT (SGPT) 10 U/L (8-55); AST (SGOT) 16 U/L (5-34); Albumin 3.8 g/dL (3.5-5.0); Alkaline Phosphatase 66 U/L (40-110); Anion Gap 15 mmol/L (10-20); BUN (Urea Nitrogen) 7 mg/dL (7.0-18.7); Bilirubin, Total 0.3 mg/dL (0.2-1.2); Calc. Creatinine Clearance 0 mL/min (70-130); Calcium 8.7 mg/dL (7.8-10.44); Carbon Dioxide 24 mmol/L (22-29); Chloride 105 mmol/L (98-107); Estimated GFR 107; Glucose 79 mg/dL (70-105); Potassium 3.9 mmol/L (3.5-5.1); Protein, Total 6.8 g/dL (6.0-8.3); Sodium 140 mmol/L (136-145)
[2022-10-19 00:40] LABS: Troponin I Less than 0.010 ng/mL (< 0.028)
[2022-10-19] MEDS ORDERED: Dexamethasone 10 MG/ML VIAL ONE (00:50)
== END 2022-10-19 01:15 | disposition home or self-care (01) ==
LOC: MADERS 23:32
DX: R07.89 Other chest pain (principal); I11.0 Hypertensive heart disease with heart failure; I50.9 Heart failure, unspecified; E66.9 Obesity, unspecified; Z87.891 Personal history of nicotine dependence; Z79.899 Other long term (current) drug therapy
CPT/HCPCS: 71045; 80053; 83880; 84484; 85025; 93005; 96372; J1100

== ENCOUNTER 2022-11-06 07:58 | Emergency (ER) | payer OTHER ==
[2022-11-06 08:48] LABS: Bilirubin Negative (Negative); Blood, Urine Large (Negative); Clarity Clear (Clear); Glucose, Urine (Dipstick) Negative (Negative); Ketone, Urine Trace mg/dL (Negative); Leukocyte Negative (Negative); Nitrite Negative (Negative); Protein, Urine (Dipstick) 100 mg/dL (Neg-Trace); Specific Gravity, Urine 1.025 (1.005-1.030)
[2022-11-06 08:53] LABS: Pregnancy Test - Urine (BHCG) Negative (Negative); Pregu Control Background? CLEAR/WHITE (CLR/WHITE); Pregu Control Bar Appear? YES (CONTROL BAR); Specific Gravity 1.025 (1.002-1.036)
[2022-11-06 08:57] LABS: Bacteria/HPF 1+ HPF (None Seen); CAUTI Indications for Culture Dysuria,urgency,freq; RBC/HPF Greater than 50 HPF (0-3)
[2022-11-06 08:58] LABS: Urine Culture Reflex No No
[2022-11-06] MEDS ORDERED: Azithromycin 250 MG TAB ONE (09:02)
[2022-11-06] MEDS ORDERED: cefTRIAXone (ROCEPHIN) 500 MG VIAL ONE (09:02)
[2022-11-06 09:04] LABS: Albumin 3.9 g/dL (3.5-5.0); BUN (Urea Nitrogen) 6 mg/dL (7.0-18.7); Bilirubin, Total 0.4 mg/dL (0.2-1.2); Calc. Creatinine Clearance 0 mL/min (70-130); Carbon Dioxide 26 mmol/L (22-29); Chloride 106 mmol/L (98-107); Estimated GFR 110; Globulin 3.5 g/dL (2.4-3.5); Glucose 95 mg/dL (70-105); Protein, Total 7.4 g/dL (6.0-8.3); Sodium 141 mmol/L (136-145)
[2022-11-06 09:05] LABS: ALT (SGPT) 11 U/L (8-55); AST (SGOT) 14 U/L (5-34); Alkaline Phosphatase 68 U/L (40-110); Anion Gap 13 mmol/L (10-20); Lipase 37 U/L (8-78)
[2022-11-06 09:11] LABS: Hematocrit 35.7 % (36.0-47.0); Hemoglobin 11.5 g/dL (12.0-16.0); Mean Corpuscular HGB CONC 32.1 g/dL (32.0-36.0); Mean Corpuscular Hemoglobin 27.5 pg (27.0-31.0); Mean Corpuscular Volume 85.7 fl (78.0-98.0); Mean Platelet Volume 7.8 fL (7.4-10.4); Platelet Count 421 10x3/uL (130-400); RBC Distribution Width 14.6 % (11.5-14.5); Red Blood Cell (RBC) Count 4.16 mill/uL (4.20-5.40); White Blood Cell (WBC) Count 6.9 10x3/uL (4.8-10.8)
[2022-11-06 09:12] LABS: #Basophils 0.1 thou/uL (0.0-0.2); #Eosinphils 0.2 thou/uL (0.0-0.7); #Lymphocytes 2.9 thou/uL (1.20-3.40); #Monocytes 0.7 thou/uL (0.11-0.59); %Basophils 1.3 % (0.0-1.0); %Eosinophils 3.5 % (0.0-10.0); %Lymphocytes 41.9 % (21.0-51.0); %Monocytes 9.6 % (0.0-10.0); %Neutrophils 43.7 % (42.0-75.0)
[2022-11-06 18:32] LABS: HIV (1/2) Antibody/Antigen Non-Reactive (NonReactive)
[2022-11-07 01:16] LABS: Chlam.trachomatis by PCR,Urine Not Detected (NotDetected); GC N.gonorrhoeae PCR,UrineVOID Not Detected (NotDetected)
== END 2022-11-06 09:45 | disposition home or self-care (01) ==
LOC: MADERS 07:58
DX: N89.8 Other specified noninflammatory disorders of vagina (principal); I11.0 Hypertensive heart disease with heart failure; I50.9 Heart failure, unspecified; E66.9 Obesity, unspecified; Z87.891 Personal history of nicotine dependence; Z79.899 Other long term (current) drug therapy
CPT/HCPCS: 80053; 81001; 81025; 83690; 85025; 87389; 87480; 87491; 87510; 87591; 87660; 96372; 99283; J0696

== ENCOUNTER 2023-01-24 08:09 | Emergency (ER) | payer OTHER ==
[2023-01-24 08:41] LABS: Bilirubin Negative (Negative); Blood, Urine Negative (Negative); Clarity Clear (Clear); Glucose, Urine (Dipstick) Negative (Negative); Ketone, Urine Negative (Negative); Leukocyte Negative (Negative); Nitrite Negative (Negative); Protein, Urine (Dipstick) Negative (Neg-Trace); pH, Urine 6.5 (5.0-9.0)
[2023-01-24 08:42] LABS: Pregnancy Test - Urine (BHCG) Negative (Negative); Pregu Control Background? CLEAR/WHITE (CLR/WHITE); Pregu Control Bar Appear? YES (CONTROL BAR); Specific Gravity 1.029 (1.002-1.036)
[2023-01-24 08:43] LABS: Specific Gravity, Urine 1.029 (1.002-1.036)
[2023-01-24 08:47] LABS: Bacteria/HPF Rare-Few HPF (None Seen); CAUTI Indications for Culture Dysuria,urgency,freq; Mucous/LPF Rare LPF (<2+); RBC/HPF 0-3 HPF (0-3); Urine Culture Reflex No No; WBC/HPF 0-3 HPF (0-3)
[2023-01-24] MEDS ORDERED: Lidocaine 1% PF 5 ML VIAL ONE (08:52)
[2023-01-24] MEDS ORDERED: cefTRIAXone (ROCEPHIN) 500 MG VIAL ONE (08:52)
[2023-01-24] MEDS ORDERED: Doxycycline 100 MG CAP ONE (08:52)
[2023-01-24] MEDS ORDERED: metroNIDAZOLE 250 MG TAB ONE (09:06)
[2023-01-25 00:32] LABS: Chlam.trachomatis by PCR,Urine Not Detected (NotDetected); GC N.gonorrhoeae PCR,UrineVOID Not Detected (NotDetected)
[2023-01-25 14:21] LABS: Chlamydia by PCR, Vaginal Swab *Indeterminate (NotDetected); GC by PCR, Vaginal Swab *Indeterminate (NotDetected)
== END 2023-01-24 09:19 | disposition home or self-care (01) ==
LOC: MADERS 08:09
DX: N89.8 Other specified noninflammatory disorders of vagina (principal); R30.0 Dysuria; I11.0 Hypertensive heart disease with heart failure; I50.9 Heart failure, unspecified; Z87.891 Personal history of nicotine dependence
CPT/HCPCS: 81001; 81025; 87491; 87591; 96372; 99284; J0696

== ENCOUNTER 2023-01-29 21:02 | Emergency (ER) | payer OTHER ==
[2023-01-29 23:01] LABS: Bilirubin Negative (Negative); Blood, Urine Moderate (Negative); Glucose, Urine (Dipstick) Negative (Negative); Ketone, Urine Negative (Negative); Leukocyte Negative (Negative); Nitrite Negative (Negative); Protein, Urine (Dipstick) Negative (Neg-Trace); pH, Urine 7.5 (5.0-9.0)
[2023-01-29] MEDS ORDERED: traMADol HCl 50 MG TAB ONE (23:01)
[2023-01-29 23:10] LABS: Bacteria/HPF 1+ HPF (None Seen); CAUTI Indications for Culture Pelvic or flank pain; Clarity Hazy (Clear); RBC/HPF Greater than 50 HPF (0-3); WBC/HPF 0-3 HPF (0-3)
[2023-01-29 23:11] LABS: Urine Culture Reflex No No
[2023-01-29 23:19] LABS: Hemoglobin 10.6 g/dL (12.0-16.0); Lymphocytes 13 % (21-51); MDiff Complete? YES; Mean Corpuscular HGB CONC 30.4 g/dL (32.0-36.0); Mean Corpuscular Hemoglobin 26.4 pg (27.0-31.0); Mean Corpuscular Volume 86.8 fl (78.0-98.0); Mean Platelet Volume 7.1 fL (7.4-10.4); Monocytes 6 % (0-10); Neutrophil 81 % (42-75); Platelet Count 462 10x3/uL (130-400); RBC Distribution Width 14.2 % (11.5-14.5); Red Blood Cell (RBC) Count 4.03 mill/uL (4.20-5.40); White Blood Cell (WBC) Count 9.3 10x3/uL (4.8-10.8)
[2023-01-29 23:30] LABS: ALT (SGPT) 17 U/L (8-55); AST (SGOT) 18 U/L (5-34); Albumin 4.1 g/dL (3.5-5.0); Alkaline Phosphatase 62 U/L (40-110); Anion Gap 14 mmol/L (10-20); BUN (Urea Nitrogen) 10 mg/dL (7.0-18.7); Bilirubin, Total 0.3 mg/dL (0.2-1.2); Calc. Creatinine Clearance 0 mL/min (70-130); Calcium 9.1 mg/dL (7.8-10.44); Carbon Dioxide 23 mmol/L (22-29); Chloride 106 mmol/L (98-107); Estimated GFR 110; Globulin 3.5 g/dL (2.4-3.5); Glucose 125 mg/dL (70-105); Lipase 23 U/L (8-78); Protein, Total 7.6 g/dL (6.0-8.3); Sodium 139 mmol/L (136-145)
== END 2023-01-29 23:54 | disposition home or self-care (01) ==
LOC: MADERS 21:02
DX: N94.89 Other specified conditions associated with female genital organs and menstrual cycle (principal); I10 Essential (primary) hypertension; Z87.891 Personal history of nicotine dependence
CPT/HCPCS: 36415; 80053; 81001; 83690; 85025; 99284

== ENCOUNTER 2023-02-01 10:23 | Emergency (ER) | payer OTHER ==
[2023-02-01 11:08] LABS: #Basophils 0.1 thou/uL (0.0-0.2); #Eosinphils 0.4 thou/uL (0.0-0.7); #Lymphocytes 3.5 thou/uL (1.20-3.40); #Monocytes 0.8 thou/uL (0.11-0.59); #Neutrophils 3.7 thou/uL (1.40-6.50); %Basophils 1.5 % (0.0-1.0); %Eosinophils 4.3 % (0.0-10.0); %Lymphocytes 41.5 % (21.0-51.0); %Monocytes 9.5 % (0.0-10.0); %Neutrophils 43.2 % (42.0-75.0); Hematocrit 36.3 % (36.0-47.0); Hemoglobin 10.7 g/dL (12.0-16.0); Mean Corpuscular HGB CONC 29.6 g/dL (32.0-36.0); Mean Corpuscular Hemoglobin 25.7 pg (27.0-31.0); Mean Corpuscular Volume 86.8 fl (78.0-98.0); Mean Platelet Volume 7.1 fL (7.4-10.4); Platelet Count 415 10x3/uL (130-400); RBC Distribution Width 14.2 % (11.5-14.5); Red Blood Cell (RBC) Count 4.18 mill/uL (4.20-5.40); White Blood Cell (WBC) Count 8.5 10x3/uL (4.8-10.8)
[2023-02-01 11:18] LABS: BHCG - Serum Negative (NEGATIVE); Pregs Control Background? CLEAR/WHITE (CLR/WHITE); Pregs Control Bar Appear? YES (CONTROL BAR)
[2023-02-01 11:25] LABS: ALT (SGPT) 15 U/L (8-55); AST (SGOT) 14 U/L (5-34); Albumin 3.8 g/dL (3.5-5.0); Alkaline Phosphatase 64 U/L (40-110); Anion Gap 10 mmol/L (10-20); BUN (Urea Nitrogen) 7 mg/dL (7.0-18.7); Bilirubin, Total 0.3 mg/dL (0.2-1.2); Calc. Creatinine Clearance 0 mL/min (70-130); Calcium 8.5 mg/dL (7.8-10.44); Carbon Dioxide 28 mmol/L (22-29); Chloride 104 mmol/L (98-107); Estimated GFR 107; Glucose 74 mg/dL (70-105); Lipase 40 U/L (8-78); Potassium 3.9 mmol/L (3.5-5.1); Protein, Total 6.8 g/dL (6.0-8.3); Sodium 138 mmol/L (136-145)
[2023-02-01 12:41] LABS: Bilirubin Negative (Negative); Blood, Urine Negative (Negative); Clarity Clear (Clear); Glucose, Urine (Dipstick) Negative (Negative); Ketone, Urine Trace mg/dL (Negative); Leukocyte Negative (Negative); Nitrite Negative (Negative); Protein, Urine (Dipstick) Trace mg/dL (Neg-Trace); pH, Urine 8.5 (5.0-9.0)
[2023-02-01 12:50] LABS: Bacteria/HPF Rare-Few HPF (None Seen); CAUTI Indications for Culture Pelvic or flank pain; RBC/HPF 0-3 HPF (0-3); Squamous Epithelial 0-3 HPF (0-3); Urine Culture Reflex No No; WBC/HPF 0-3 HPF (0-3)
[2023-02-02 11:13] LABS: Chlamydia by PCR, Vaginal Swab Not Detected (NotDetected); GC by PCR, Vaginal Swab Not Detected (NotDetected)
== END 2023-02-01 12:55 | disposition home or self-care (01) ==
LOC: MADERS 10:23
DX: R10.2 Pelvic and perineal pain (principal); I11.0 Hypertensive heart disease with heart failure; I50.9 Heart failure, unspecified; Z87.891 Personal history of nicotine dependence
CPT/HCPCS: 76856; 80053; 81001; 83690; 84703; 85025; 87480; 87491; 87510; 87591; 87660

== ENCOUNTER 2023-02-13 18:36 | Emergency (ER) | payer OTHER ==
[2023-02-13] MEDS ORDERED: Ondansetron ODT 4 MG TAB ONE (20:54)
== END 2023-02-13 21:11 | disposition home or self-care (01) ==
LOC: MADERS 18:36
DX: K59.00 Constipation, unspecified (principal); R11.2 Nausea with vomiting, unspecified; E66.9 Obesity, unspecified; I11.0 Hypertensive heart disease with heart failure; I50.9 Heart failure, unspecified; Z87.891 Personal history of nicotine dependence; Z79.899 Other long term (current) drug therapy
CPT/HCPCS: 99283; Q0162

== ENCOUNTER 2023-04-10 02:19 | Emergency (ER) | payer OTHER | END 2023-04-10 02:40 | disposition home or self-care (01) | LOC: MADERS 02:19 | DX: L73.9 Follicular disorder, unspecified (principal); I10 Essential (primary) hypertension; Z87.891 Personal history of nicotine dependence; Z79.899 Other long term (current) drug therapy | CPT/HCPCS: 99283 ==

== ENCOUNTER 2023-04-11 22:24 | Emergency (ER) | payer OTHER ==
[2023-04-11 23:30] LABS: #Basophils 0.2 thou/uL (0.0-0.2); #Eosinphils 0.3 thou/uL (0.0-0.7); #Lymphocytes 3.1 thou/uL (1.20-3.40); #Monocytes 1.1 thou/uL (0.11-0.59); #Neutrophils 7.2 thou/uL (1.40-6.50); %Basophils 1.6 % (0.0-1.0); %Eosinophils 2.4 % (0.0-10.0); %Lymphocytes 26.1 % (21.0-51.0); %Monocytes 9.5 % (0.0-10.0); %Neutrophils 60.4 % (42.0-75.0); Hematocrit 35.2 % (36.0-47.0); Hemoglobin 10.7 g/dL (12.0-16.0); Mean Corpuscular HGB CONC 30.3 g/dL (32.0-36.0); Mean Corpuscular Hemoglobin 25.4 pg (27.0-31.0); Mean Corpuscular Volume 84.1 fl (78.0-98.0); Mean Platelet Volume 6.9 fL (7.4-10.4); Platelet Count 373 10x3/uL (130-400); RBC Distribution Width 16.3 % (11.5-14.5); Red Blood Cell (RBC) Count 4.19 mill/uL (4.20-5.40)
[2023-04-11 23:40] LABS: Anion Gap 13 mmol/L (10-20); BUN (Urea Nitrogen) 11 mg/dL (7.0-18.7); Calc. Creatinine Clearance 0 mL/min (70-130); Calcium 8.8 mg/dL (7.8-10.44); Carbon Dioxide 23 mmol/L (22-29); Chloride 105 mmol/L (98-107); Estimated GFR 110; Glucose 100 mg/dL (70-105); Potassium 3.8 mmol/L (3.5-5.1); Sodium 137 mmol/L (136-145)
[2023-04-11 23:42] LABS: Acetaminophen Less than 10 mcg/mL (10.0-30.0); Alcohol Less than 10.0 mg/dL (Less than 10); Salicylate Less than 8.0 mg/dL (15.0-30.0)
[2023-04-11 23:54] LABS: Amphetamine Not Detected (NotDetected); Barbiturates Screen Not Detected (NotDetected); Benzodiazepine Screen Not Detected (NotDetected); Cocaine Metabolite Screen Not Detected (NotDetected); Methadone Not Detected (NotDetected); Methamphetamine Not Detected (NotDetected); Opiate Screen Not Detected (NotDetected); Oxycodone Screen Not Detected (NotDetected); Phencyclidine (PCP) Not Detected (NotDetected); Pregnancy Test - Urine (BHCG) Negative (Negative); Pregu Control Background? CLEAR/WHITE (CLR/WHITE); Pregu Control Bar Appear? YES (CONTROL BAR); THC/Cannabinoid Screen Not Detected (NotDetected); Tricyclic Screen Not Detected (NotDetected)
[2023-04-11 23:55] LABS: Bacteria/HPF Rare-Few HPF (None Seen); Bilirubin Negative (Negative); Blood, Urine Negative (Negative); CAUTI Indications for Culture Pelvic or flank pain; Clarity Clear (Clear); Glucose, Urine (Dipstick) Negative (Negative); Ketone, Urine Negative (Negative); Leukocyte Small (Negative); Mucous/LPF 1+ LPF (<2+); Nitrite Negative (Negative); Protein, Urine (Dipstick) Negative (Neg-Trace); RBC/HPF 0-3 HPF (0-3); Squamous Epithelial 0-3 HPF (0-3)
[2023-04-11 23:56] LABS: Urine Culture Reflex No No
[2023-04-12] MEDS ORDERED: Acyclovir 200 mg Capsule ONE (00:08)
[2023-04-12] MEDS ORDERED: cloNIDine 0.1 MG TAB ONE (00:08)
[2023-04-12 00:37] LABS: ALT (SGPT) 13 U/L (8-55); AST (SGOT) 16 U/L (5-34); Alkaline Phosphatase 71 U/L (40-110); Bilirubin, Direct 0.1 mg/dL (0.1-0.3); Bilirubin, Total 0.3 mg/dL (0.2-1.2); Protein, Total 7.5 g/dL (6.0-8.3)
[2023-04-12] MEDS ORDERED: cefTRIAXone (ROCEPHIN) 500 MG VIAL ONE (00:39)
[2023-04-12] MEDS ORDERED: Lidocaine 1% PF 5 ML VIAL ONE (00:39)
[2023-04-12] MEDS ORDERED: Azithromycin 250 MG TAB ONE (00:39)
[2023-04-12 12:18] LABS: HBCM Index 0.07 S/CO (0-0.79); HBSAg Index 0.19 S/CO (0-0.99); HIV (1/2) Antibody/Antigen Non-Reactive (NonReactive); HIV 1/2 INDEX 0.29 S/CO (<1.00); Hep A IgM AB Non-Reactive S/CO (NonReactive); Hep A IgM S/CO 0.12 S/CO (0-0.79); Hep B Surf Ag Non-Reactive S/CO (NonReactive); Hep C IgG Ab Non-Reactive S/CO (NonReactive); Hepatitis B Core IgM Abs Non-Reactive S/CO (NonReactive)
[2023-04-12 14:08] LABS: Syphilis Antibody Nonreactive (Nonreactive); Syphilis Antibody Index 0.05 S/CO (<1.00 Non-Reactive)
== END 2023-04-12 03:42 | disposition home or self-care (01) ==
LOC: MADERS 22:24
DX: S51.812A Laceration without foreign body of left forearm, initial encounter (principal); S51.811A Laceration without foreign body of right forearm, initial encounter; S81.811A Laceration without foreign body, right lower leg, initial encounter; S81.812A Laceration without foreign body, left lower leg, initial encounter; R45.851 Suicidal ideations; I11.0 Hypertensive heart disease with heart failure; I50.9 Heart failure, unspecified; Z87.891 Personal history of nicotine dependence; Z79.899 Other long term (current) drug therapy; Z20.2 Contact with and (suspected) exposure to infections with a predominantly sexual mode of transmission; W26.8XXA Contact with other sharp object(s), not elsewhere classified, initial encounter
CPT/HCPCS: 36415; 80048; 80074; 80076; 80306; 80307; 81001; 81025; 85025; 86780; 87389; 87480; 87510; 87660; 96372; 99284; J0696

== ENCOUNTER 2023-12-18 20:17 | Emergency (ER) | payer OTHER ==
[2023-12-18 21:11] LABS: Pregnancy Test - Urine (BHCG) Negative (Negative); Pregu Control Background? CLEAR/WHITE (CLR/WHITE); Pregu Control Bar Appear? YES (CONTROL BAR); Specific Gravity 1.012 (1.002-1.036)
[2023-12-18 21:28] LABS: Band 2 % (5-11); Eosinophils 1 % (0-10); Hematocrit 32.8 % (36.0-47.0); Hemoglobin 10.3 g/dL (12.0-16.0); Lymphocytes 33 % (21-51); MDiff Complete? YES; Mean Corpuscular HGB CONC 31.4 g/dL (32.0-36.0); Mean Corpuscular Hemoglobin 27.2 pg (27.0-31.0); Mean Corpuscular Volume 86.6 fl (78.0-98.0); Mean Platelet Volume 6.2 fL (7.4-10.4); Monocytes 8 % (0-10); Neutrophil 56 % (42-75); Platelet Count 349 10x3/uL (130-400); RBC Distribution Width 15.5 % (11.5-14.5); Red Blood Cell (RBC) Count 3.79 mill/uL (4.20-5.40); White Blood Cell (WBC) Count 11.3 10x3/uL (4.8-10.8)
[2023-12-18 21:36] LABS: ALT (SGPT) 12 U/L (8-55); AST (SGOT) 18 U/L (5-34); Albumin 3.3 g/dL (3.5-5.0); Alkaline Phosphatase 76 U/L (40-110); Anion Gap 15 mmol/L (10-20); BUN (Urea Nitrogen) 9 mg/dL (7.0-18.7); Bilirubin, Total 0.4 mg/dL (0.2-1.2); Calc. Creatinine Clearance 0 mL/min (70-130); Calcium 8.3 mg/dL (7.8-10.44); Carbon Dioxide 23 mmol/L (22-29); Chloride 106 mmol/L (98-107); Estimated GFR 100; Globulin 3.7 g/dL (2.4-3.5); Glucose 97 mg/dL (70-105); Potassium 3.9 mmol/L (3.5-5.1); Sodium 140 mmol/L (136-145)
== END 2023-12-18 22:23 | disposition home or self-care (01) ==
LOC: MADERS 20:17
DX: M17.12 Unilateral primary osteoarthritis, left knee (principal); I11.0 Hypertensive heart disease with heart failure; I50.9 Heart failure, unspecified; Z87.891 Personal history of nicotine dependence
CPT/HCPCS: 36415; 80053; 81025; 83880; 85025; 85379; 86140; 99285

== ENCOUNTER 2024-01-19 22:04 | Emergency (ER) | payer OTHER | END 2024-01-20 02:15 | disposition home or self-care (01) | LOC: MADERS 22:04 | DX: R07.9 Chest pain, unspecified (principal); I11.0 Hypertensive heart disease with heart failure; I50.9 Heart failure, unspecified | CPT/HCPCS: 71046 ==

== ENCOUNTER 2024-04-22 04:52 | Emergency (ER) | payer OTHER ==
[2024-04-22 05:32] LABS: Band 2 % (5-11); Eosinophils 2 % (0-10); Hematocrit 35.7 % (36.0-47.0); Hemoglobin 10.7 g/dL (12.0-16.0); Lymphocytes 34 % (21-51); MDiff Complete? YES; Mean Corpuscular Hemoglobin 25.3 pg (27.0-31.0); Mean Corpuscular Volume 84.4 fl (78.0-98.0); Mean Platelet Volume 6.5 fL (7.4-10.4); Monocytes 8 % (0-10); Neutrophil 54 % (42-75); Platelet Count 422 10x3/uL (130-400); RBC Distribution Width 15.7 % (11.5-14.5); Red Blood Cell (RBC) Count 4.23 mill/uL (4.20-5.40); White Blood Cell (WBC) Count 9.5 10x3/uL (4.8-10.8)
[2024-04-22 05:35] LABS: BHCG - Serum Negative (NEGATIVE); Pregs Control Background? CLEAR/WHITE (CLR/WHITE); Pregs Control Bar Appear? YES (CONTROL BAR)
[2024-04-22 05:45] LABS: ALT (SGPT) 7 U/L (Less than 34); AST (SGOT) 25 U/L (11-34); Albumin 3.4 g/dL (3.1-4.5); Alkaline Phosphatase 83 U/L (40-110); Anion Gap 16 mmol/L (10-20); BUN (Urea Nitrogen) 9 mg/dL (7.0-18.7); Bilirubin, Total 0.4 mg/dL (0.3-1.2); Calc. Creatinine Clearance 0 mL/min (70-130); Calcium 8.5 mg/dL (7.8-10.44); Carbon Dioxide 22 mmol/L (22-29); Chloride 105 mmol/L (98-107); Estimated GFR 115; Globulin 4.2 g/dL (2.4-3.5); Glucose 104 mg/dL (70-105); Potassium 3.7 mmol/L (3.5-5.1); Protein, Total 7.6 g/dL (6.0-8.3); Sodium 139 mmol/L (136-145)
[2024-04-22 05:46] LABS: Troponin I 0.012 ng/mL (< 0.028)
[2024-04-22 05:56] LABS: CK (CPK) 95 U/L (29-168); Magnesium 1.7 mg/dL (1.6-2.6)
[2024-04-22 06:02] LABS: INR-International Normal Ratio 0.7
[2024-04-22 06:03] LABS: PTT 29.9 sec (22.9-36.1)
== END 2024-04-22 06:50 | disposition home or self-care (01) ==
LOC: MADERS 04:52
DX: R20.2 Paresthesia of skin (principal); I11.0 Hypertensive heart disease with heart failure; I50.9 Heart failure, unspecified; Z79.899 Other long term (current) drug therapy
CPT/HCPCS: 36415; 71045; 80053; 82550; 83735; 83880; 84484; 84703; 85025; 85610; 85730; 93005

== ENCOUNTER 2024-06-22 17:19 | Emergency (ER) | payer MEDICARE, OTHER ==
[2024-06-22 17:52] LABS: Bilirubin Negative (Negative); Blood, Urine Trace (Negative); Clarity Clear (Clear); Glucose, Urine (Dipstick) Negative (Negative); Ketone, Urine Trace mg/dL (Negative); Leukocyte Negative (Negative); Nitrite Negative (Negative); Protein, Urine (Dipstick) Negative (Neg-Trace); Specific Gravity, Urine Greater/Equal 1.030 (1.005-1.030); Urobilinogen 0.2 mg/dL (Less than 2); pH, Urine 5.5 (5.0-9.0)
[2024-06-22 17:59] LABS: Bacteria/HPF Rare-Few HPF (None Seen); CAUTI Indications for Culture Dysuria,urgency,freq; RBC/HPF 0-3 HPF (0-3); WBC/HPF None Seen HPF (0-3)
[2024-06-22 18:00] LABS: Mucous/LPF 1+ LPF (<2+); Pregnancy Test - Urine (BHCG) Negative (Negative); Pregu Control Background? CLEAR/WHITE (CLR/WHITE); Pregu Control Bar Appear? YES (CONTROL BAR); Urine Culture Reflex No No
[2024-06-22 18:04] LABS: Amphetamine Negative (Negative); Barbiturates Screen Negative (Negative); Benzodiazepine Screen Negative (Negative); Cocaine Metabolite Screen Negative (Negative); Methadone Negative (Negative); Methamphetamine Negative (Negative); Opiate Screen Negative (Negative); Oxycodone Screen Negative (Negative); Phencyclidine (PCP) Negative (Negative); THC/Cannabinoid Screen Negative (Negative); Tricyclic Screen Negative (Negative)
[2024-06-22] MEDS ORDERED: metroNIDAZOLE 250 MG TAB ONE (18:09)
== END 2024-06-22 18:12 | disposition home or self-care (01) ==
LOC: MADERS 17:19
DX: R10.84 Generalized abdominal pain (principal); R10.31 Right lower quadrant pain; R10.32 Left lower quadrant pain; I11.0 Hypertensive heart disease with heart failure; I50.9 Heart failure, unspecified; Z79.899 Other long term (current) drug therapy
CPT/HCPCS: 80306; 81001; 81025; 99284